=== PATIENT | female | born 1990 | race African-American/Black ===

== ENCOUNTER 2019-06-29 15:00 | Emergency (ER) | payer SELFPAY | END 2019-06-29 17:20 | disposition left against medical advice (07) | LOC: ERS 15:00 | DX: Z53.21 Procedure and treatment not carried out due to patient leaving prior to being seen by health care provider (principal) ==

== ENCOUNTER 2020-09-05 18:04 | Emergency (ER) | payer SELFPAY ==
[2020-09-05] MEDS ORDERED: Acetaminophen 500 MG TAB ONE (19:12)
[2020-09-05] MEDS ORDERED: Ondansetron ODT 4 MG TAB ONE (19:12)
[2020-09-06 06:35] LABS: SARS-CoV-2 MS2 Positive; SARS-CoV-2 N Gene Negative; SARS-CoV-2 S Gene Negative; SARS-CoV-2 by NAA Not Detected (NotDetected); SARS-CoV-2 orf1ab Negative
== END 2020-09-05 20:20 | disposition home or self-care (01) ==
LOC: ERS 18:04
DX: J06.9 Acute upper respiratory infection, unspecified (principal); R11.0 Nausea; F17.210 Nicotine dependence, cigarettes, uncomplicated; Z20.828 Contact with and (suspected) exposure to other viral communicable diseases
CPT/HCPCS: 87635; 87804; 99283; Q0162; U0003

== ENCOUNTER 2020-10-16 19:20 | Emergency (ER) | payer SELFPAY ==
[2020-10-18 17:43] LABS: SARS-CoV-2 PCR by NAA Not Detected (NotDetected)
== END 2020-10-16 19:57 | disposition home or self-care (01) ==
LOC: ERS 19:20
DX: Z20.822 Contact with and (suspected) exposure to COVID-19 (principal); F17.210 Nicotine dependence, cigarettes, uncomplicated
CPT/HCPCS: 87635; 99283; U0003; U0005

== ENCOUNTER 2023-11-28 09:50 | Emergency (ER) | payer MEDICAID, SELFPAY | END 2023-11-28 11:29 | disposition home or self-care (01) | LOC: ERS 09:50 | DX: B35.6 Tinea cruris (principal); F17.210 Nicotine dependence, cigarettes, uncomplicated | CPT/HCPCS: 99282 ==